=== PATIENT | female | born 2000 | race Two or more races ===

== ENCOUNTER 2021-07-21 14:56 | Emergency (ER) | payer SELFPAY ==
[~2021-07-21] VITALS: Ht 157.5 cm; Wt 78.0 kg
[2021-07-21 16:15] LABS: RBC,URINE TNTC /HPF (0-2)
[2021-07-21 16:18] LABS: BACTERIA,URINE FEW /HPF (0-FEW)
--- NOTE | 2021-07-21 16:25 | RAD ---
Exam: CT of abdomen and pelvis without contrast INDICATION: Left flank pain TECHNIQUE: Sequential axial images through the abdomen and pelvis obtained without IV contrast. Sagit travis and coronal reformatted images were reconstructed from the axial data and reviewed. Exposure: One or more of the following in the visualized dose reduction techniques were utilized for this examination: 1. Automated exposure control 2. Adjustment of the MA and/or KV according to patient size 3. Use of iterative of reconstructive technique Comparisons: None FINDINGS: Heart size is normal. No pericardial effusion. Visualized lung bases are clear. No pleural effusion. Liver, spleen, pancreas, gallbladder and adrenals are unremarkable. Nonobstructing renal calculi noted bilaterally. 3 mm calculus at the proximal left ureter with mild l eft-sided hydronephrosis. Bladder is decompressed not well evaluated. Uterus not enlarged. Cystic lesion at the right adnexa wh ich measures approximately 3.8 cm in diameter. Moderate amount of stool is noted in the colon. Appendix is normal. Small bowel is unremarkable. No f ree intra-abdominal air or fluid. No obstruction. Abdominal aorta has normal course and caliber. Abdominal vasculature is patent. No enlarged intra-abdominal lymph nodes are identified. No suspicious osseous lesions or acute fractures. IMPRESSION: 1. A 3 mm calculus the proximal left ureter causing mild left-sided hydronephrosis. 2. Nonobstructing renal calculi bilaterally. 3. Cystic lesion at the right adnexa measuring up to 3.8 cm favored represent cyst within the right ovary however incompletely characterized on CT. Electronically signed by: Seema Hamlin MD (07/21/2021 4:23 PM) [facility]
--- NOTE | 2021-07-21 18:23 | PHYS DOC ---
Past Medical History Past Surgical History: No Surgical History (VANDANA ADAMS DO) General Adult EDM: Chief Complaint: FLANK PAIN HPI: HPI: Patient is a 21 year old female who present to ER for evaluation of left flank pain started this morning. Patient described the pain as cramping stabbing in nature. Patient denies any blood in her urine, denies any pain with urination (VANDANA ADAMS DO) Review of Systems: Review of Systems: Constitutional: Denies fever or chills. [] Eyes: Denies change in visual acuity. [] HENT: Denies nasal congestion or sore throat. [] Respiratory: Denies cough or shortness of breath. [] Cardiovascular: Denies chest pain or edema. [] GI: Positive for left flank pain, no nausea vomiting, no diarrhea : Denies dysuria. [] Musculoskeletal: Denies back pain or joint pain. [] Integument: Denies rash. [] Neurologic: Denies headache, focal weakness or sensory changes. [] Endocrine: Denies polyuria or polydipsia. [] Lymphatic: Denies swollen glands. [] Psychiatric: Denies depression or anxiety. [] (VANDANA ADAMS DO) Heart Score: C/O Chest Pain: N/A Risk Factors: Risk Factors: DM, Current or recent (<one month) smoker, HTN, HLP, family history of CAD, obesity. Risk Scores: Score 0 - 3: 2.5% MACE over next 6 weeks - Discharge Home Score 4 - 6: 20.3% MACE over next 6 weeks - Admit for Clinical Observation Score 7 - 10: 72.7% MACE over next 6 weeks - Early Invasive Strategies (VANDANA ADAMS DO) Allergies: Allergies: Allergies Coded Allergies Type Severity Reaction Last Updated Verified No Known Drug Allergies 07/21/21 No (VANDANA ADAMS DO) Physical Exam: PE: Constitutional: Well developed, well nourished, no acute distress, non-toxic appearance. [] HENT: Normocephalic, atraumatic, bilateral external ears normal, oropharynx moist, no oral exudates, nose normal. [] Eyes: PERRLA, EOMI, conjunctiva normal, no discharge. [] Neck: Normal range of motion, no tenderness, supple, no stridor. [] Cardiovascular:Heart rate regular rhythm, no murmur [] Lungs & Thorax: Bilateral breath sounds clear to auscultation [] Abdomen: Bowel sounds normal, soft, no tenderness, no masses, no pulsatile masses. [] Skin: Warm, dry, no erythema, no rash. [] Back: No tenderness, LEFT CVA tenderness. [] Extremities: No tenderness, no cyanosis, no clubbing, ROM intact, no edema. [] Neurologic: Alert and oriented X 3, normal motor function, normal sensory function, no focal deficits noted. [] Psychologic: Affect normal, judgement normal, mood normal. [] (VANDANA ADAMS DO) Current Patient Data: Labs: Laboratory Tests Test 07/21/21 15:46 07/21/21 15:50 Urine Collection Type Unknown Urine Color (Auto) Colorless Urine Turbidity Hazy Urine pH (Auto) 6.0 (<5.0-8.0) Urine Specific Lewis 1.014 (1.000-1.030) Urine Protein (Auto) Negative mg/dL (Negative) Urine Glucose (Auto)(UA) Negative mg/dL (Negative) Urine Ketones (Auto) Trace mg/dL (Negative) Urine Blood (Auto) Large (Negative) Urine Nitrite Negative (Negative) Urine Bilirubin (Auto) Negative (Negative) Urine Urobilinogen (Auto) Normal mg/dL (Normal) Urine Leukocyte Esterase (Auto) Small (Negative) Urine RBC Tntc /HPF (0-2) Urine WBC 1-4 /HPF (0-4) Urine Squamous Epithelial Cells Mod /LPF Urine Bacteria Few /HPF (0-FEW) POC Urine HCG, Qualitative Hcg negative (Negative) Vital Signs: Vital Signs Date Time Temp Pulse Resp B/P (MAP) Pulse Ox O2 Delivery O2 Flow Rate FiO2 07/21/21 15:36 98.0 110 20 142/65 (90) 97 98.0 (VANDANA ADAMS DO) EKG: EKG: [] (VANDANA ADAMS DO) Radiology/Procedures: Radiology/Procedures: [][facility] [address] [place], [place] [id number] IMAGING REPORT Signed PATIENT: MON[place] PRESLEYACCOUNT: [id number] : 2000 LOCATION: ER AGE: 21 SEX: F EXAM STATUS: REG ER ORD. PHYSICIAN: VANDANA ADAMS DO REASON: left flank pain PROCEDURE: CT ABDOMEN PELVIS WO CONTRAST Exam: CT of abdomen and pelvis without contrast INDICATION: Left flank pain TECHNIQUE: Sequential axial images through the abdomen and pelvis obtained without IV contrast. Sagittal and coronal reformatted images were reconstructed from the axial data and reviewed. Exposure: One or more of the following in the visualized dose reduction techniques were utilized for this examination: 1. Automated exposure control 2. Adjustment of the MA and/or KV according to patient size 3. Use of iterative of reconstructive technique Comparisons: None FINDINGS: Heart size is normal. No pericardial effusion. Visualized lung bases are clear. No pleural effusion. Liver, spleen, pancreas, gallbladder and adrenals are unremarkable. Nonobstructing renal calculi noted bilaterally. 3 mm calculus at the proximal left ureter with mild left-sided hydronephrosis. Bladder is decompressed not well evaluated. Uterus not enlarged. Cystic lesion at the right adnexa which measures approximately 3.8 cm in diameter. Moderate amount of stool is noted in the colon. Appendix is normal. Small bowel is unremarkable. No free intra-abdominal air or fluid. No obstruction. Abdominal aorta has normal course and caliber. Abdominal vasculature is patent. No enlarged intra-abdominal lymph nodes are identified. No suspicious osseous lesions or acute fractures. IMPRESSION: 1. A 3 mm calculus the proximal left ureter causing mild left-sided hydronephrosis. 2. Nonobstructing renal calculi bilaterally. 3. Cystic lesion at the right adnexa measuring up to 3.8 cm favored represent cyst within the right ovary however incompletely characterized on CT. Electronically signed by: Seema Coleman MD (07/21/2021 4:23 PM) [facility] WITH [facility] DICTATED and SIGNED BY: SEEMA COLEMAN MD DATE: 07/21/21 1618 (VANDANA ADAMS DO) Radiology/Procedures: Exam: CT of abdomen and pelvis without contrast INDICATION: Left flank pain TECHNIQUE: Sequential axial images through the abdomen and pelvis obtained without IV contrast. Sagittal and coronal reformatted images were reconstructed from the axial data and reviewed. Exposure: One or more of the following in the visualized dose reduction techniques were utilized for this examination: 1. Automated exposure control 2. Adjustment of the MA and/or KV according to patient size 3. Use of iterative of reconstructive technique Comparisons: None FINDINGS: Heart size is normal. No pericardial effusion. Visualized lung bases are clear. No pleural effusion. Liver, spleen, pancreas, gallbladder and adrenals are unremarkable. Nonobstructing renal calculi noted bilaterally. 3 mm calculus at the proximal left ureter with mild left-sided hydronephrosis. Bladder is decompressed not well evaluated. Uterus not enlarged. Cystic lesion at the right adnexa which measures approximately 3.8 cm in diameter. Moderate amount of stool is noted in the colon. Appendix is normal. Small bowel is unremarkable. No free intra-abdominal air or fluid. No obstruction. Abdominal aorta has normal course and caliber. Abdominal vasculature is patent. No enlarged intra-abdominal lymph nodes are identified. No suspicious osseous lesions or acute fractures. IMPRESSION: 1. A 3 mm calculus the proximal left ureter causing mild left-sided hydronephrosis. 2. Nonobstructing renal calculi bilaterally. 3. Cystic lesion at the right adnexa measuring up to 3.8 cm favored represent cyst within the right ovary however incompletely characterized on CT. (ELENA SWEENEY DO) Course & Med Decision Making: Course & Med Decision Making Pertinent Labs and Imaging studies reviewed. (See chart for details) Patient is a 21-year-old female who present to ER with left flank pain, CT scan show a 3 mm left proximal ureteral stone with some mild hydronephrosis. Awaiting for lab work. Patient care was endorsed to the incoming physician at shift change Dr. Sweeney, anticipate that patient be discharged home with pain medication if her kidney function is normal. (VANDANA ADAMS DO) Course & Med Decision Making Case endorsed to me from Dr Adams. Patient pending lab. 3mm left sided kidney stone. Pending re-eval. Patient is comfortable after reevaluation. Return precautions were discussed. Questions and concerns were addressed with the patient (ELENA SWEENEY DO) Dragon Disclaimer: Dragon Disclaimer: This electronic medical record was generated, in whole or in part, using a voice recognition dictation system. (VANDANA ADAMS DO) Departure Departure Impression: Primary Impression: Left ureteral stone Disposition: HOME / SELF CARE / HOMELESS Condition: STABLE Referrals: NO PCP (PCP) GABI BALDERAS MD Patient Instructions: Diet for Kidney Stones Scripts Oxycodone/Apap 5-325 (PERCOCET 5-325 MG TABLET ) 1 Each Tablet 1 TAB PO PRN Q6HRS PRN for PAIN, #12 TAB 0 Refills Prov: ELENA SWEENEY DO 07/21/21 Ibuprofen (IBUPROFEN) 600 Mg Tablet 600 MG PO PRN Q6HRS PRN for PAIN, #20 TAB take with food or milk Prov: ELENA SWEENEY DO 07/21/21 VANDANA ADAMS DO Jul 21, 2021 18:23 ELENA SWEENEY DO Jul 21, 2021 18:33
[2021-07-21] MEDS ORDERED: KETOROLAC 30 MG/ML VIAL. IVP ONE (18:30)
[2021-07-21] MEDS ORDERED: KETOROLAC 15 MG/ML VIAL. IVP ONE (18:45)
[2021-07-21] MEDS ORDERED: IV NORMAL SALINE 1000ML BAG 1,000 ML IV ONE (18:45)
[2021-07-21 19:33] LABS: BASO % 0 % (0-3); EOS # 0.1 x10^3/uL (0.0-0.7); EOS % 1 % (0-3); HEMOGLOBIN 12.2 g/dL (12.0-15.5); LYMPH % 21 % (24-48); MEAN CORPUSCULAR HEMOGLOBIN 27 pg (25-35); MEAN CORPUSCULAR HGB CONC 34 g/dL (31-37); MEAN CORPUSCULAR VOLUME 80 fL (79-100); MONO # 0.6 x10^3/uL (0.0-1.1); MONO % 6 % (0-9); NEUT % 72 % (31-73); PLATELET COUNT 253 x10^3/uL (140-400); RED BLOOD COUNT 4.49 x10^6/uL (3.50-5.40); RED CELL DISTRIBUTION WIDTH 14.8 % (11.5-14.5); WHITE BLOOD COUNT 9.7 x10^3/uL (4.0-11.0)
[2021-07-21 19:51] LABS: ALBUMIN/GLOBULIN RATIO 0.9 (1.0-1.7); CREATININE 0.6 mg/dL (0.6-1.0); GFR 127.5; TOTAL BILIRUBIN 0.3 mg/dL (0.2-1.0); TOTAL PROTEIN 6.4 g/dL (6.4-8.2)
[2021-07-21 19:56] LABS: POTASSIUM 2.8 mmol/L (3.5-5.1)
[2021-07-21 20:05] VITALS: BP 133/69
[2021-07-21] MEDS ORDERED: POTASSIUM CHLORIDE 20 MEQ TABLET.ER. PO ONE (20:15)
[2021-07-21] MEDS ORDERED: OXYC1TAB15 PO (20:23)
[2021-07-21] MEDS ORDERED: IBUP-1007 PO (20:23)
[2021-07-21] MEDS ORDERED: oxyCODONE/APAP 5/325 1 TAB TABLET PO ONE (20:30)
== END 2021-07-21 20:58 | disposition home or self-care (01) ==
LOC: ER 14:56
DX: N13.2 Hydronephrosis with renal and ureteral calculous obstruction (principal); N83.201 Unspecified ovarian cyst, right side
CPT/HCPCS: 36415; 74176; 80053; 81001; 81025; 85025; 87086; 96361; 96374; 99284; J1885; J7030